=== PATIENT | female | born 1985 | race Asian ===

== ENCOUNTER 2017-12-29 17:36 | Emergency (ER) | payer MEDICAID ==
[2017-12-29 17:48] VITALS: BP 130/76
[2017-12-29] MEDS ORDERED: TETANUS/DIPHTHERIA/PERTUSSIS 0.5 ML SYRINGE IM ONE (17:57)
[2017-12-29] MEDS ORDERED: BUFFERED LIDOCAINE 10 ML SYRINGE SUBQ STA (17:57)
--- NOTE | 2017-12-29 18:01 | ED Physician Documentation ---
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.) Review of Systems Constitutional: reports: Reviewed and negative Cardiac: reports: Reviewed and negative Respiratory: reports: Reviewed and negative PD PAST MEDICAL HISTORY - Past Medical History Past Medical History: No - Past Surgical History Past Surgical History: Yes HEENT: Tonsil/Adenoidectomy - Present Medications Home Medications: Ambulatory Orders Medication Instructions Recorded Confirmed No Known Home Medications [No 05/06/16 05/06/16 Known Home Medications] - Allergies Allergies/Adverse Reactions: Allergies Allergy/AdvReac Type Severity Reaction Status Date / Time No Known Drug Allergies Allergy Verified 12/29/17 17:44 - Social History Does the pt smoke?: No Smoking Status: Never smoker Does the pt drink ETOH?: No Does the pt have substance abuse?: No - Immunizations Immunizations are current?: No Immunizations: TDAP >10years/unknown - POLST Patient has POLST: No PD ED PE NORMAL - Vitals Vital signs reviewed: Yes - General General: Alert and oriented X 3, No acute distress - Extremities Extremities: Other (There is a 1.5 cm laceration on the dorsal side of the left middle finger at the level of the PIP without neurovascular compromise.) - Psych Psych: Normal mood, Other Results - Vitals Vitals: Vital Signs - 24 hr 12/29/17 17:41 Temperature 36.6 C Heart Rate 90 Blood Pressure 130/76 O2 Saturation 97 Oxygen O2 Source Room air Procedures - Laceration (location) L 3rd finger Length in cm: 1.5 Wound type: Linear Neurovascular status: Sensory intact, Motor intact, Vascular intact Tendon involvement: Tendon intact. No: Tendon Injury Anesthesia: Lidocaine 1%, With bicarb Wound Preparation: Chlorhexadine, Irrigated copiously NS Skin layer closure: Nylon, Interrupted, Size #-0 - enter number, Sutures - enter # (5) Other: Patient tolerated well, No complications, Neurovascular intact, Tetanus booster given Complexity: Simple PD MEDICAL DECISION MAKING - Sepsis Event Vital Signs: Vital Signs - 24 hr 12/29/17 17:41 Temperature 36.6 C Heart Rate 90 Blood Pressure 130/76 O2 Saturation 97 Oxygen O2 Source Room air Departure - Departure Disposition: 01 Home, Self Care Clinical Impression: Laceration Condition: Good Record reviewed to determine appropriate education?: Yes Instructions: ED Laceration Hand Comments: Come back for any signs of infection which would include: Redness, swelling, drainage, increased pain, or fevers. Follow-up with your physician in 14 days for suture removal.
== END 2017-12-29 18:28 | disposition home or self-care (01) ==
LOC: ED 17:36
DX: S61.213A Laceration without foreign body of left middle finger without damage to nail, initial encounter (principal); W29.0XXA Contact with powered kitchen appliance, initial encounter; Y92.009 Unspecified place in unspecified non-institutional (private) residence as the place of occurrence of the external cause; Z23 Encounter for immunization
CPT/HCPCS: 12001; 90471; 99282; 99283

== ENCOUNTER 2021-03-12 15:33 | Outpatient (CLI) | payer MEDICAID ==
--- NOTE | 2021-03-12 16:56 | Ultrasound Report ---
PROCEDURE: Pelvic w/Transvaginal INDICATIONS: PELVIC PAIN TECHNIQUE: Real-time scanning was performed of the pelvic organs, with image documentation. Additional endovagi nal scanning was necessary due to incomplete visualization of the adnexal and endometrial structures by transabdominal scanning. COMPARISON: None. FINDINGS: No pathologic free abdominal or pelvic fluid. Uterus: The uterus measures 7.1 x 3.8 x 4.7 cm. The uterus is anteverted. Uterine echotexture is norm al. Endometrium is normal. No uterine fibroids. The cervix has nabothian cysts. Ovaries: Both ovaries have a normal size measuring 2.3 x 2.7 x 1.6 cm on the right and 2.7 x 2.3 x 2 .5 cm on the left. No solid masses. An involuting left corpus luteal cyst is seen. IMPRESSION: 1. No acute ultrasound abnormality of the pelvis. 2. Involuting left corpus luteal cyst. Reviewed by: Gurdeep Pineda on 03/12/2021 4:55 PM PDT Approved by: Gurdeep Pineda on 03/12/2021 4:55 PM PDT Station ID: [id number]
== END 2021-03-12 15:34 | disposition home or self-care (01) ==
LOC: DI 15:33
PROVIDERS: ATTEND Family Medicine
DX: N83.12 Corpus luteum cyst of left ovary (principal); R10.2 Pelvic and perineal pain

== ENCOUNTER 2023-03-24 09:16 | Outpatient (CLI) | payer MEDICAID, OTHER ==
--- NOTE | 2023-03-24 17:12 | XRAY Report ---
PROCEDURE: Cervical Spine 2 View INDICATIONS: NECK PAIN,ACUTE TECHNIQUE: 3 views of the cervical spine were obtained. COMPARISON: None FINDINGS: Bones: Vertebral body height and alignment is maintained. No evidence of traumatic malalignment. Reve rsal normal cervical lordosis noted Soft tissues: No prevertebral soft tissue swelling. IMPRESSION: Reversal the normal cervical lordosis may be related to muscle spasm or positioning Reviewed by: Jesús Edwards MD on 03/24/2023 4:10 PM AKLESIA Approved by: Jesús Edwards MD on 03/24/2023 4:10 PM AKDT Station ID: [id number]
== END 2023-03-24 09:17 | disposition home or self-care (01) ==
LOC: DI 09:16
PROVIDERS: ATTEND Physician Assistant Medical
DX: M54.2 Cervicalgia (principal)

== ENCOUNTER 2023-07-15 08:17 | Outpatient (CLI) | payer OTHER ==
[~2023-07-15 08:17] MED LIST: GADOTERATE MEGLUMINE 10 MMOL/20 ML VIAL ONE
[2023-07-15] MEDS ORDERED: GADOTERATE MEGLUMINE 10 MMOL/20 ML VIAL IVP ONE (10:45)
--- NOTE | 2023-07-17 08:36 | MRI Report ---
PROCEDURE: LUMBAR SPINE WO INDICATIONS: LUMBAR BACK PAIN TECHNIQUE: Noncontrast sagittal T1 spin echo and T2 fast echo, sagittal STIR, axial T1 and T2 fast spin echo thr ough the lumbar spine. In cases with scoliosis, additional coronal T2 fast spin echo may be performe d. COMPARISON: CT lumbar spine dated 03/08/2023. FINDINGS: Image quality: Excellent. Alignment and Curvature: There is normal bony alignment. Bone Marrow: Marrow is of normal overall signal. No acute vertebral body compression fractures. Spinal Cord: Conus medullaris terminates at the L2 level. Visualized cord demonstrates normal signa l and size. Paraspinous Soft Tissues: No paravertebral masses. T12-L1: Normal in appearance. L1-L2: Normal in appearance. L2-L3: Normal in appearance. L3-L4: Mild disc desiccation and minimal disc height loss. Disc bulge. Mild facet hypertrophy. No c anal stenosis or foraminal stenosis. L4-L5: Mild disc height loss. Disc desiccation. Mild disc bulge. Facet hypertrophy. Mild canal sten osis. No significant foraminal stenosis. L5-S1: Annulus tear plus mild central posterior disc protrusion. Facet and ligament hypertrophy. Mo derate canal stenosis. No significant foraminal stenosis. IMPRESSION: 1. There is underlying multilevel facet hypertrophy. 2. Canal stenosis is mild at L4-L5 and moderate at L5-S1. Reviewed by: Wili Bansal MD on 07/17/2023 8:34 AM PST Approved by: Wili Bansal MD on 07/17/2023 8:34 AM PST Station ID: [id number]
--- NOTE | 2023-07-17 09:18 | MRI Report ---
PROCEDURE: Cervical Spine WO INDICATIONS: NECK PAIN TECHNIQUE: Noncontrast sagittal T1 spin echo and T2 fast spin echo, sagittal STIR, foraminal oblique sagittal T2 fast spin echo, and axial gradient echo or T2 fast spin echo through the cervical spine. COMPARISON: No canal stenosis or foraminal stenosis. FINDINGS: Image quality: Excellent. Alignment and Curvature: There is normal bony alignment. Bone Marrow: Marrow demonstrates normal overall signal. Spinal Cord: Visualized spinal cord has normal size and signal. No cerebellar tonsillar herniation. Paraspinous Soft Tissues: No paravertebral masses. Prevertebral soft tissues are normal in thicknes s. C2-C3: Normal in appearance. C3-C4: Disc bulge, eccentric to the left. Mild indentation on the cord. AP diameter of the central canal is 8.1 mm. No foraminal stenosis. C4-C5: Congenitally short pedicles. Mild disc bulge with mild superimposed left paracentral disc pro trusion indenting on the ventral cord. AP diameter of the central canal is 7.5 mm. Left side of the c anal has greater stenosis. No significant foraminal stenosis. C5-C6: Congenitally short pedicles. Mild to moderate central posterior disc protrusion indenting on the cord. AP diameter of the central canal is 6.1 mm. No significant foraminal stenosis. C6-C7: Congenitally short pedicles. AP diameter of the central canal is 9.9 mm. No foraminal stenosi s. C7-T1: Normal in appearance. IMPRESSION: 1. Patient has underlying congenitally short pedicles. 2. Canal stenosis is moderate at C3-C4, moderate to severe at C4-C5, and severe at C5-C6. 3. No significant foraminal stenosis noted. Reviewed by: Wili Bnasal MD on 07/17/2023 9:16 AM PST Approved by: Wili Bansal MD on 07/17/2023 9:16 AM PST Station ID: [id number]
--- NOTE | 2023-07-17 09:57 | MRI Report ---
PROCEDURE: Brain W/WO INDICATIONS: TRAUMATIC HEADACHE CONTRAST: CLARISCAN 15.8 ML TECHNIQUE: Noncontrast axial T1 spin echo, axial T2 fast spin echo, sagittal and axial FLAIR, coronal T2 fast sp in echo, axial gradient echo, axial diffusion and ADC through the brain. After the administration of contrast, axial and coronal T1 spin echo with fat saturation through the brain. COMPARISON: CT head dated 03/16/2023 FINDINGS: Image quality: Excellent. CSF spaces: Basal cisterns are patent. No extra-axial fluid collections. Ventricles are normal in size and shape. Brain: No midline shift. No intracranial bleeds or masses. No abnormal intracranial enhancement. There is cerebral volume loss for age. There is periventricular white matter chronic small vessel is chemic change. The brainstem appears normal. Diffusion-weighted images demonstrate no acute ischemi c insults. No chronic ischemic insults. Normal intravascular flow voids are present. Skull and face: Calvarial marrow is normal in signal. Orbits appear normal. Sinuses: Right mastoids are hypoaerated. Paranasal sinuses and left mastoids are clear. IMPRESSION: No acute intracranial process. No significant sequelae of intracranial trauma. Reviewed by: Wili Bansal MD on 07/17/2023 9:56 AM PST Approved by: Wili Bansal MD on 07/17/2023 9:56 AM PST Station ID: [id number]
== END 2023-07-15 08:18 | disposition home or self-care (01) ==
LOC: DI 08:17
PROVIDERS: ATTEND Physician Assistant Medical
DX: G44.309 Post-traumatic headache, unspecified, not intractable (principal); M48.02 Spinal stenosis, cervical region; M47.816 Spondylosis without myelopathy or radiculopathy, lumbar region; M48.061 Spinal stenosis, lumbar region without neurogenic claudication; M48.07 Spinal stenosis, lumbosacral region
CPT/HCPCS: 70553; 72141; 72148; A9575